=== PATIENT | male | born 1950 | race Caucasian/White ===

== ENCOUNTER 2018-04-10 09:59 | Inpatient (IN) | payer MEDICARE ==
[~2018-04-10] VITALS: Ht 175.3 cm; Wt 98.1 kg
[~2018-04-10 09:59] MED LIST: ASPI-650 PO; BACITRACIN 50,000 UNIT ONE; BUPIVACAINE/PF 0.25% ONE; ENAL20TA PO; EPINEPHRINE 1 MG/ML, 1ML ONE; OMEP-110 PO; SIMV20TA3 PO; THROMBIN 5,000 UNIT VIAL TP ONE; VANCOMYCIN 1,000 MG ONE
[2018-04-10] MEDS ORDERED: ONDANSETRON ODT 8 MG PO ONE (11:00)
[2018-04-10] MEDS ORDERED: GABAPENTIN 300 MG CAPSULE PO ONE (11:00)
[2018-04-10] MEDS ORDERED: OXYcodone IR 5MG TABLET PO ONE (11:00)
[2018-04-10] MEDS ORDERED: ACETAMINOPHEN 500 MG TABLET PO ONE (11:00)
[2018-04-10] MEDS ORDERED: HALOPERIDOL 5 MG/ML IV PRN (12:00)
[2018-04-10] MEDS ORDERED: LABETALOL 5MG/ML, 20ML IV PRN (12:00)
[2018-04-10] MEDS ORDERED: METOPROLOL 1 MG/ML, 5ML IV PRN (12:00)
[2018-04-10] MEDS ORDERED: MORPHINE SULFATE 4 MG/ML, 1ML IVPush PRN (12:00)
[2018-04-10] MEDS ORDERED: PROMETHAZINE 25 MG/ML, 1ML IV PRN (12:00)
[2018-04-10] MEDS ORDERED: OXYcodone 5 MG/5 ML ORAL.SOL UDC PO PRN (12:00)
[2018-04-10] MEDS ORDERED: FENTANYL PF 100 MCG/2ML IV PRN (12:00)
[2018-04-10] MEDS ORDERED: EPHEDRINE 50 MG/ML, 1ML IVPush PRN (12:00)
[2018-04-10] MEDS ORDERED: LACTATED RINGERS 1,000 ML IV SCH (12:00)
[2018-04-10] MEDS ORDERED: ALBUTEROL SULFATE 2.5 MG/3 ML NPPB PRN (12:00)
[2018-04-10] MEDS ORDERED: MEPERIDINE/PF 25MG/0.5ML IVPush PRN (12:00)
[2018-04-10] MEDS ORDERED: hydrALAzine 20 MG/ML, 1ML IV PRN (12:00)
[2018-04-10] MEDS ORDERED: FENTANYL PF 250 MCG/5ML ONE (12:21)
[2018-04-10] MEDS ORDERED: SCOPOLAMINE PATCH, 1.5MG PATCH.TD72 TD ONE ×2 (12:54)
[2018-04-10] MEDS ORDERED: NEOSPORIN OINT, 15GM ONE (13:08)
[2018-04-10] MEDS ORDERED: SUCCINYLCHOLINE 20 MG/ML, 10ML ONE (13:54)
[2018-04-10] MEDS ORDERED: PROPOFOL 10 MG/ML, 20ML ONE (13:54)
[2018-04-10] MEDS ORDERED: ROCURONIUM 10MG/ML,5ML ONE (13:54)
[2018-04-10] MEDS ORDERED: CEFAZOLIN 1,000 MG ONE ×2 (13:54)
[2018-04-10] MEDS ORDERED: PROPOFOL 150 ML ONE (13:55)
[2018-04-10] MEDS ORDERED: DEXAMETHASONE 4 MG/ML, 1ML ONE ×2 (13:55)
[2018-04-10] MEDS ORDERED: BUPIVACAINE/PF 0.25% INFIL ONE ×2 (14:09→14:10)
[2018-04-10] MEDS ORDERED: DIPHENHYDRAMINE 50 MG/ML, 1ML IVPush PRN (15:00)
[2018-04-10] MEDS ORDERED: MEPERIDINE/PF 100 MG/ML IM PRN (15:00)
[2018-04-10] MEDS ORDERED: PROMETHAZINE 25 MG/ML, 1ML IM PRN (15:00)
[2018-04-10] MEDS ORDERED: SENNA/DOCUSATE TABLET PO PRN (15:00)
[2018-04-10] MEDS ORDERED: HYDROcodone/APAP 5/325 TABLET PO PRN (15:00)
[2018-04-10] MEDS ORDERED: DIAZEPAM 5 MG TABLET PO PRN (15:00)
[2018-04-10] MEDS: TIZANIDINE 4MG TABLET PO SCH ×2 (15:00→21:33)
[2018-04-10] MEDS ORDERED: ONDANSETRON 2MG/ML, 2ML IVPush PRN (15:00)
[2018-04-10] MEDS ORDERED: MAGNESIUM HYDROXIDE 8%, 30ML UDC PO PRN (15:00)
[2018-04-10] MEDS ORDERED: BISACODYL 10 MG SUPP PR PRN (15:00)
[2018-04-10] MEDS ORDERED: PHARMACY MAY ADJ FOR RENAL FX MC PRN (15:00)
[2018-04-10] MEDS ORDERED: OXYcodone 5 MG/5 ML ORAL.SOL UDC ONE (15:52)
[2018-04-10 19:43] VITALS: BP 150/78
[2018-04-10] MEDS: D5%-0.9% NACL+KCL 20MEQ 1,000 ML IV SCH (21:32)
[2018-04-10] MEDS: SODIUM CHLORIDE FLUSH 10ML SYR IVF SCH (21:32)
[2018-04-10] MEDS: CEFAZOLIN PMX 1GM/50ML 50 ML IVPB SCH (21:32)
[2018-04-10] MEDS: SIMVASTATIN 20 MG TABLET PO SCH (21:33)
[2018-04-10] MEDS: ENALAPRIL 20MG TABLET PO SCH (21:33)
[2018-04-11 00:01] VITALS: BP 110/70
[2018-04-11] MEDS: TIZANIDINE 4MG TABLET PO SCH ×4 (03:09→22:11)
[2018-04-11 04:20] VITALS: BP 138/74
[2018-04-11] MEDS: CEFAZOLIN PMX 1GM/50ML 50 ML IVPB SCH (04:59)
[2018-04-11] MEDS: D5%-0.9% NACL+KCL 20MEQ 1,000 ML IV SCH ×3 (06:32→23:49)
[2018-04-11 07:23] VITALS: BP 91/54
[2018-04-11] MEDS: OMEPRAZOLE 20 MG CAPSULE.DR PO SCH (07:46)
[2018-04-11] MEDS: SODIUM CHLORIDE FLUSH 10ML SYR IVF SCH ×2 (07:53→21:00)
[2018-04-11 11:12] LABS: BASOPHILS # (AUTO) 0.01 x10^3/uL (0-0.1); BASOPHILS % (AUTO) 0 % (0-1); EOSINOPHILS % (AUTO) 0 % (1-7); LYMPHOCYTES # (AUTO) 0.63 x10^3/uL (1-3.4); LYMPHOCYTES % (AUTO) 6 % (22-44); MD NO; MEAN CORPUSCULAR HEMOGLOBIN 32.3 pg (27.5-34.5); MEAN CORPUSCULAR HGB CONC 34.1 g/dL (33.2-36.2); MEAN CORPUSCULAR VOLUME 94.7 fL (81-97); MEAN PLATELET VOLUME 7.4 fL (7.4-10.4); MONOCYTES # (AUTO) 0.82 x10^3/uL (0.2-0.8); MONOCYTES % (AUTO) 7 % (2-9); NEUTROPHILS # (AUTO) 9.77 x10^3/uL (1.8-6.8); NEUTROPHILS % (AUTO) 87 % (42-75); PLATELET COUNT 239 x10^3/uL (130-400); RED BLOOD COUNT 3.77 x10^6/uL (4.38-5.82); RED CELL DISTRIBUTION WIDTH 12.7 % (9.4-14.8)
[2018-04-11 11:21] LABS: ANION GAP 8 mmol/L (5-15); CALCIUM 8.1 mg/dL (8.5-10.1); CHLORIDE 107 mmol/L (98-107); CREATININE 1.83 mg/dL (0.7-1.3)
[2018-04-11] MEDS ORDERED: TRAM50TA2 PO (12:45)
[2018-04-11] MEDS ORDERED: TIZA2CAP PO (12:46)
[2018-04-11 13:04] VITALS: BP 116/63
[2018-04-11 19:21] VITALS: BP 135/76
[2018-04-11] MEDS: ENALAPRIL 20MG TABLET PO SCH (21:00)
[2018-04-11 22:09] VITALS: BP 138/78
[2018-04-11] MEDS: SIMVASTATIN 20 MG TABLET PO SCH (22:12)
[2018-04-12 01:15] VITALS: BP 138/78
[2018-04-12] MEDS: TIZANIDINE 4MG TABLET PO SCH ×2 (03:00→10:34)
[2018-04-12 06:58] VITALS: BP 148/73
[2018-04-12] MEDS: OMEPRAZOLE 20 MG CAPSULE.DR PO SCH (08:38)
[2018-04-12] MEDS: SODIUM CHLORIDE FLUSH 10ML SYR IVF SCH (08:38)
[2018-04-12] MEDS: D5%-0.9% NACL+KCL 20MEQ 1,000 ML IV SCH (09:30)
[2018-04-12] MEDS ORDERED: POLY17PO5 PO (11:19)
== END 2018-04-12 11:30 | disposition home or self-care (01) | DRG 517 ==
LOC: OUT 09:59 → OBSVTOIN 14:59 → ORIP 14:59 → 4NOR 16:18 → DCLOUNGE 04-12 11:17
PROVIDERS: ADMIT Neurological Surgery; ATTEND Neurological Surgery
PROC: 01N10ZZ Release Cervical Nerve, Open Approach (ICD-10-PCS; principal; 2018-04-10 12:30)
DX: M47.22 Other spondylosis with radiculopathy, cervical region (principal); M48.02 Spinal stenosis, cervical region; Z88.8 Allergy status to other drugs, medicaments and biological substances
CPT/HCPCS: 36415; 72040; 80048; 85025; 95938; 95941; C1713; J0171; J0690; J1100; J2270; J2704; J3010; J3370; J3490; Q0162; J0330; J3480; J7120